=== PATIENT | female | born 1950 | race Two or more races ===

== ENCOUNTER 2017-09-23 14:45 | Outpatient (CLI) | payer MEDICARE, MEDICAID | END 2017-09-23 23:59 | disposition home or self-care (01) | LOC: MSC 14:45 | PROVIDERS: ATTEND Anesthesiology | DX: M51.16 Intervertebral disc disorders with radiculopathy, lumbar region (principal); M47.27 Other spondylosis with radiculopathy, lumbosacral region; M16.11 Unilateral primary osteoarthritis, right hip; G89.29 Other chronic pain; I10 Essential (primary) hypertension; F32.9 Major depressive disorder, single episode, unspecified ==